=== PATIENT | male | born 1995 | race Caucasian/White ===

== ENCOUNTER 2016-08-20 01:06 | Observation (INO) | payer OTHER ==
[~2016-08-20] VITALS: Ht 188 cm; Wt 66.2 kg
[2016-08-20] MEDS ORDERED: SULF-222 (01:12)
[2016-08-20] MEDS ORDERED: MUPI22OI2 (01:12)
--- OUTSIDE RECORDS SUMMARY | 2016-08-20 01:13 | XMS REPORT | Continuity of Care Document ---
Author Author [facility] Organization [facility] Address Unknown Phone Unavailable Care Team Providers Care Consumer Insights Specialist Name Role Phone No Pcp, Na PCP Unavailable Source Comments Some departments are not documenting in the electronic medical record. If you do not see the information that you expected, contact Release of Information in the Health Information Management department at [phone] for further assistance in locating additional records.[facility] Active Allergies and Adverse Reactions Allergen Noted Date Severity Reactions Comments Peanut 03/03/2016 High ANAPHYLAXIS Current Medications Prescription Sig. Disp. Refills Start End Date Status Date ibuprofen (MOTRIN) 600 mg Take 1 Tab by mouth every 50 Tab 0 05/24/20 Active tablet 6 hours as needed. Take 16 with food. albuterol (VENTOLIN HFA, Inhale 2 Puffs by mouth 1 Inhaler 0 07/25/19 Active PROAIR HFA, PROVENTIL into the lungs every 6 17 HFA) 90 mcg/actuation hours as needed for inhaler Wheezing or Shortness of Breath. Shake well before use. Mometasone-Formoterol Inhale 2 Puffs by mouth 1 Inhaler 0 07/25/19 Active 100-5 mcg/actuation HFAA into the lungs twice 17 daily as needed. albuterol (VENTOLIN HFA, Inhale 2 Puffs by mouth 07/25/19 Discontin PROAIR HFA, PROVENTIL into the lungs every 6 17 ued HFA) 90 mcg/actuation hours as needed for inhaler Wheezing or Shortness of Breath. Shake well before use. Mometasone-Formoterol Inhale 2 Puffs by mouth 07/25/19 Discontin 100-5 mcg/actuation HFAA into the lungs twice 17 ued daily as needed. Active Problems Problem Noted Date Pectus excavatum 02/19/2016 Asthma Most Recent Encounters Date Type Specialty Providers Description 07/28/2016 Office Visit Cardiothoracic Surgery Shashank Feng MD Pectus excavatum (Primary Dx) 07/28/2016 Hospital Radiology Shashank Feng MD Encounter 07/25/2016 Telephone Cardiothoracic Surgery Martine Mars RN Medication Refill 06/16/2016 Office Visit Cardiothoracic Surgery Shashank Feng MD Pectus excavatum (Primary Dx) 06/16/2016 [facility] Radiology Lizeth Goldstein PA-C Encounter 05/21/2016 Anesthesia Cardiothoracic Surgery Aleena Rodriguez MD Event 05/21/2016 Surgery Shashank Feng MD Right Video Assisted Thoracoscopy, Pectus Repair - (Aaron) 05/20/2016 [facility] Radiology Shashank eFng MD Encounter 05/20/2016 PAC Office Anesthesiology Shashank Feng MD Pectus excavatum Visit 05/20/2016 Anesthesia Stefan Underwood MD Event Social History Tobacco Use Types Packs/Day Years Used Date Never Smoker Smokeless Tobacco: Never Used Alcohol Use Drinks/Week oz/Week Comments No 0 Standard 0.0 drinks or equivalent Last Filed Vital Signs Vital Sign Reading Time Taken Blood Pressure 112/72 07/28/2016 1:48 PM TIRE BAGGER Pulse 83 07/28/2016 1:48 PM TIRE BAGGER Temperature 36.6 C (97.9 F) 05/24/2016 7:51 AM CDT Respiratory Rate - - Height 1.854 m (6' 1") 07/28/2016 1:48 PM TIRE BAGGER Weight 66.316 kg (146 lb 3.2 oz) 07/28/2016 1:48 PM TIRE BAGGER Body Mass Index 19.29 07/28/2016 1:48 PM TIRE BAGGER Oxygen Saturation 97% 07/28/2016 1:48 PM TIRE BAGGER Plan of Care Date Type Specialty Providers Description 09/29/2016 Appointment Cardiothoracic Surgery Shashank Feng MD [address] [facility] [address] [place] [address] [phone] (Fax) Health Maintenance Due Date Last Done Comments Physical (Comprehensive) 02/10/2003 Exam Hpv Vaccines (#1) 02/10/2007 Pertussis Vaccine 02/10/2007 Tetanus Vaccine 02/10/2013 Influenza Vaccine 03/20/2016 Procedures from Last 3 Months Procedure Name Priority Date/Time Associated Diagnosis Comments PROCEDURES-SCAN 05/27/2016 Results for this 8:36 AM TIRE BAGGER procedure are in the results section. PROCEDURES-SCAN 05/27/2016 Results for this 8:36 AM TIRE BAGGER procedure are in the results section. PROCEDURES-SCAN 05/27/2016 Results for this 8:36 AM TIRE BAGGER procedure are in the results section. ANESTHESIA ARTERIAL LINE Routine 05/21/2016 Results for this INSERTION 9:16 AM CDT procedure are in the results section. Results from Last 3 Months CHEST 2 VIEWS (07/28/2016 1:36 PM)Only the most recent of 3 results within the time period is included. Impressions No acute disease in the chest. Approved by Gregory David M.D. on 07/28/2016 3:24 PM By my electronic signature, I attest that I have personally reviewed the images for this examination and formulated the interpretations and opinions expressed in this report Finalized by Britney Mcdonald M.D. on 07/28/2016 3:30 PM. Dictated by Gregory David M.D. on 07/28/2016 1:38 PM. Narrative CHEST 2 VIEWS Clinical Indication:Male, 21 years old. Pectus excavatum. Had surgery 2015 . Comparison: None Findings: The Aaron bar remains in place and is unchanged in position Heart size and pulmonary vasculature are within normal limits. No consolidation, pleural effusion, or pneumothorax. Stable hypoplastic changes of the left third rib. Procedure Note Interface, Radiant Results - ThuJul 28, 2016 3:33 PM TIRE BAGGER CHEST 2 VIEWS Clinical Indication: Male, 21 years old. Pectus excavatum. Had surgery 05/2016 . Comparison: None Findings: The Aaron bar remains in place and is unchanged in position Heart size and pulmonary vasculature are within normal limits. No consolidation, pleural effusion, or pneumothorax. Stable hypoplastic changes of the left third rib. IMPRESSION No acute disease in the chest. Approved by Gregory David M.D. on 07/28/2016 3:24 PM By my electronic signature, I attest that I have personally reviewed the images for this examination and formulated the interpretations and opinions expressed in this report Finalized by Britney Mcdonald M.D. on 07/28/2016 3:30 PM. Dictated by Gregory David M.D. on 07/28/2016 1:38 PM. PROCEDURES-SCAN (05/27/2016 8:36 AM) Narrative Ordered by an unspecified provider. PROCEDURES-SCAN (05/27/2016 8:36 AM) Narrative Ordered by an unspecified provider. PROCEDURES-SCAN (05/27/2016 8:36 AM) Narrative Ordered by an unspecified provider. CHEST SINGLE VIEW (05/24/2016 6:25 AM)Only the most recent of 5 results within the time period is included. Impressions Continued improvement in scattered atelectasis. Approved by Michael Nuno M.D. on 05/24/2016 8:52 AM By my electronic signature, I attest that I have personally reviewed the images for this examination and formulated the interpretations and opinions expressed in this report Finalized by Michael Chiu M.D. on 05/24/2016 10:28 AM. Dictated by Michael Nuno M.D. on 05/24/2016 8:00 AM. Narrative CHEST SINGLE VIEW Clinical Indication: Male, 21 years old. Right VATS, pectus repair, chest tube placement. Comparison: Chest prior day Findings: Michael Chiu M.D. has personally reviewed these images and formulated the interpretations and opinions expressed in this report. Cardiac silhouette is normal in size. Pulmonary vasculature is unremarkable. No focal consolidation, pleural effusion, or pneumothorax. Pectus repair bar remains in place. Interval improvement in scattered atelectasis. Procedure Note Interface, Radiant Results - Sat May 24, 2016 10:31 AM CDT CHEST SINGLE VIEW Clinical Indication: Male, 21 years old. Right VATS, pectus repair, chest tube placement. Comparison: Chest prior day Findings: Michael Chiu M.D. has personally reviewed these images and formulated the interpretations and opinions expressed in this report. Cardiac silhouette is normal in size. Pulmonary vasculature is unremarkable. No focal consolidation, pleural effusion, or pneumothorax. Pectus repair bar remains in place. Interval improvement in scattered atelectasis. IMPRESSION Continued improvement in scattered atelectasis. Approved by Michael Nuno M.D. on 05/24/2016 8:52 AM By my electronic signature, I attest that I have personally reviewed the images for this examination and formulated the interpretations and opinions expressed in this report Finalized by Michael Chiu M.D. on 05/24/2016 10:28 AM. Dictated by Michael Nuno M.D. on 05/24/2016 8:00 AM. BASIC METABOLIC PANEL (05/22/2016 3:30 AM) Component Value Range Sodium 135 (L) 137-147 MMOL/L Potassium 3.7 3.5-5.1 MMOL/L Chloride 101 98-110 MMOL/L CO2 26 21-30 MMOL/L Anion Gap 8 3-12 Glucose 114 (H) 70-100 MG/DL Blood Urea Nitrogen 8 7-25 MG/DL Creatinine 0.91 0.4-1.24 MG/DL Calcium 9.2 8.5-10.6 MG/DL eGFR Non >60Comment: >60 mL/min The eGFR is not validated for use in drug dosing adjustments. Continue to use estimated creatinine clearance per dosing reference text. Please contact the Clinical Pharmacist for questions. eGFR >60Comment: >60 mL/min The eGFR is not validated for use in drug dosing adjustments. Continue to use estimated creatinine clearance per dosing reference text. Please contact the Clinical Pharmacist for questions. Specimen Blood CBC (05/22/2016 3:30 AM)Only the most recent of 2 results within the time period is included. Component Value Range White Blood Cells 10.1 4.5-11.0 K/UL RBC 4.42 4.4-5.5 M/UL Hemoglobin 12.8 (L) 13.5-16.5 GM/DL Hematocrit 38.2 (L) 40-50 % MCV 86.4 80-100 FL MCH 29.0 26-34 PG MCHC 33.6 32.0-36.0 G/DL RDW 13.3 11-15 % Platelet Count 187 150-400 K/UL MPV 9.2 7-11 FL Specimen Blood POC GLUCOSE (05/22/2016 3:23 AM)Only the most recent of 4 results within the time period is included. Component Value Range Glucose, POC 105 (H) 70-100 MG/DL ANESTHESIA ARTERIAL LINE INSERTION (05/21/2016 9:16 AM) MORIAH Gordon 05/21/20169:16 AM Anesthesia Procedure: Arterial Line Placement A-LINE INSERTION Date/Time: 05/21/2016 8:45 AM Patient location: OR Indications: frequent labs and hemodynamic monitoring Staff Anesthesiologist: STEFAN UNDERWOOD Performed by: MANDEEP STARK Preprocedure checklist performed: 2 patient identifiers, risks & benefits discussed, patient evaluated, timeout performed, consent obtained and patient being monitored Sterile technique: - Proper hand washing - Cap, mask - Sterile gloves - Skin prep for antisepsis Arterial Line Procedure Patient sedated: yes (see MAR) Sedation type: general; Artery prepped with chlorhexidine; skin prep agent completely dried prior to procedure. Location: radial artery Technique: palpation and anatomical landmarks Needle gauge: 20 G Number of attempts: 2 Procedure Outcome Catheter secured with chlorhexidine patch applied, securement device and adhesive dressing applied Events: no complications noted during insertion and skin intact, warm, and dry Observation: pt tolerated well ANESTHESIA EPIDURAL BLOCK (05/21/2016 8:05 AM) Keesha Rodriguez MD 05/21/20168:05 AM Anesthesia Procedure: Epidural Block EPIDURAL BLOCK Date/Time: 05/21/2016 7:45 AM Patient location: pre-op Reason for block: post-op pain management Staff Anesthesiologist: STEFAN UNDERWOOD Performed by: ALEENA RODRIGUEZ Preprocedure checklist performed: 2 patient identifiers, risks & benefits discussed, patient evaluated, timeout performed, consent obtained, patient being monitored, existing labs reviewed, no anticoagulant within risk period and sterile drape Sterile technique: - Proper hand washing - Cap, mask - Sterile gloves - Skin prep for antisepsis Epidural Procedure Patient position: sitting Prep: ChloraPrep Monitoring: BP, EKG and continuous pulse ox Approach: midline Location: thoracic Level/Interspace: T7-8 Injection technique: CARLOS EDUARDO saline Procedures: landmark technique Local infiltration: 1% lidocaine injected locally Number of attempts: 2 Needle/epidural catheter: Needle type: Tuohy Needle gauge: 18 G Needle length: 3.5 in Needle insertion depth: 5 cm Catheter type: multi orifice Catheter size: 20 G Catheter at skin depth: 10 cm Procedure Outcome Events: negative test dose and negative aspiration test Patient tolerance of procedure: patient tolerated the procedure well with no immediate complications BLOOD TYPE CONFIRMATION - ORDER ONLY IF REQUESTED BY LAB (05/21/2016 4:34 AM) Component Value Range ABO/RH(D) A POS Specimen Blood URINALYSIS, MICROSCOPIC (05/20/2016 1:45 PM) Component Value Range WBCs,UA NONE 0-2 /HPF RBCs,UA NONE 0-3 /HPF MucousUA TRACE Specimen Urine URINALYSIS DIPSTICK (05/20/2016 1:45 PM) Component Value Range Color,UA STRAW Turbidity,UA CLEAR CLEAR-CLEAR Specific [place]-Urine 1.004 1.003-1.035 pH,UA 7.0 5.0-8.0 Protein,UA NEG NEG-NEG Glucose,UA NEG NEG-NEG Ketones,UA NEG NEG-NEG Bilirubin,UA NEG NEG-NEG Blood,UA NEG NEG-NEG Urobilinogen,UA NORMAL NORM-NORMAL Nitrite,UA NEG NEG-NEG Leukocytes,UA NEG NEG-NEG Urine Ascorbic Acid, UA NEG NEG-NEG Specimen Urine TYPE & CROSSMATCH (05/20/2016 1:44 PM) Component Value Range Units Ordered 0 Crossmatch Expires 05/23/2016 Record Check 2ND TYPE REQUIRED ABO/RH(D) A POS Antibody Screen NEG Specimen Blood PTT (APTT) (05/20/2016 1:44 PM) Component Value Range APTT 35.1 24.0-40.0 SEC Specimen Blood PROTIME INR (PT) (05/20/2016 1:44 PM) Component Value Range INR 1.1 0.8-1.2 Specimen Blood COMPREHENSIVE METABOLIC PANEL (05/20/2016 1:44 PM) Component Value Range Sodium 138 137-147 MMOL/L Potassium 4.1 3.5-5.1 MMOL/L Chloride 101 98-110 MMOL/L Glucose 72 70-100 MG/DL Blood Urea Nitrogen 10 7-25 MG/DL Creatinine 1.04 0.4-1.24 MG/DL Calcium 9.9 8.5-10.6 MG/DL Total Protein 7.6 6.0-8.0 G/DL Total Bilirubin 0.6 0.3-1.2 MG/DL Albumin 4.5 3.5-5.0 G/DL Alk Phosphatase 66 25-110 U/L AST (SGOT) 14 7-40 U/L CO2 30 21-30 MMOL/L ALT (SGPT) 12 7-56 U/L Anion Gap 7 3-12 eGFR Non >60Comment: >60 mL/min The eGFR is not validated for use in drug dosing adjustments. Continue to use estimated creatinine clearance per dosing reference text. Please contact the Clinical Pharmacist for questions. eGFR >60Comment: >60 mL/min The eGFR is not validated for use in drug dosing adjustments. Continue to use estimated creatinine clearance per dosing reference text. Please contact the Clinical Pharmacist for questions. Specimen Blood
[2016-08-20 01:30] LABS: BASOPHILS % (AUTO) 0 % (0-10); EOSINOPHILS # (AUTO) 0.7 10^3/uL (0.0-0.3); EOSINOPHILS % (AUTO) 8 % (0-10); LYMPHOCYTES # (AUTO) 2.5 X 10^3 (1.0-4.0); LYMPHOCYTES % (AUTO) 29 % (12-44); MEAN CORPUSCULAR HEMOGLOBIN 30 PG (25-34); MEAN CORPUSCULAR HGB CONC 34 G/DL (32-36); MEAN CORPUSCULAR VOLUME 86 FL (80-99); MEAN PLATELET VOLUME 10.5 FL (7.4-10.4); MONOCYTES # (AUTO) 0.6 X 10^3 (0.0-1.0); MONOCYTES % (AUTO) 7 % (0-12); NEUTROPHILS # (AUTO) 4.7 X 10^3 (1.8-7.8); NEUTROPHILS % (AUTO) 56 % (42-75); PLATELET COUNT 254 10^3/uL (130-400); RED BLOOD COUNT 5.29 10^6/uL (4.35-5.85); RED CELL DISTRIBUTION WIDTH 12.8 % (10.0-14.5); WHITE BLOOD COUNT 8.5 10^3/uL (4.3-11.0)
[2016-08-20 01:47] LABS: ALANINE AMINOTRANSFERASE 15 U/L (0-55); ALBUMIN 4.6 G/DL (3.2-4.5); ANION GAP 11 MMOL/L (5-14); ASPARTATE AMINO TRANSFERASE 17 U/L (5-34); BILIRUBIN,TOTAL 0.6 MG/DL (0.1-1.0); BLOOD UREA NITROGEN 15 MG/DL (7-18); BUN/CREATININE RATIO 12; CALCIUM 9.3 MG/DL (8.5-10.1); CARBON DIOXIDE 22 MMOL/L (21-32); CHLORIDE 106 MMOL/L (98-107); CREATININE SERUM 1.26 MG/DL (0.60-1.30); GFR ESTIMATED > 60; GLUCOSE 89 MG/DL (70-105); POTASSIUM 3.8 MMOL/L (3.6-5.0); SODIUM 139 MMOL/L (135-145); TOTAL PROTEIN 7.5 G/DL (6.4-8.2)
[2016-08-20 01:59] LABS: hs C REACTIVE PROTEIN 0.64 MG/DL (0.00-0.50)
[2016-08-20] MEDS ORDERED: CLINDAMYCIN 900 MG/50 ML IVPB 50 ML IV ONE (02:15)
[2016-08-20] MEDS ORDERED: methylPREDNISolone 125 MG (Solu-MEDROL) VIAL IVP ONE (02:15)
[2016-08-20 02:34] LABS: ERYTHROCYTE SEDIMENTATION RATE 2 MM/HR (0-15)
[2016-08-20 04:00] VITALS: BP 123/91
--- NOTE | 2016-08-20 05:42 | ED Integumentary General ---
General Chief Complaint: Skin/Wound Problems Stated Complaint: CELLULITIS R HAND & FOREARM Nursing Triage Note: Hand swollen since Thursday a.m. and saw [facility] today at 10 a.m. with extension into lower FA. Pt is on Bactrim now but has been picking at the scabs and squeezing. The markings from [facility] had extension of erythema since morning. Source: patient History of Present Illness Time seen by provider: 01:20 Initial Comments PT STATES HE WOKE UP Thursday08/18/16 WITH RIGHT HAND REDNESS AND SWELLING SEEN AT [facility] TODAY AT 1030 AM AND WAS GIVEN RX FOR BACTRIM AND TOOK FIRST DOSE AT 1400 STATES HE HAD SOME REDNESS AND SWELLING TO MID FOREARM AT THAT TIME' REDNESS AND SWELLING AND PAIN HAVE INCREASED AND REDNESS AND SWELLING NOW EXTEND TO ELBOW NO FEVER NO INJURY HAS A FEW SCABBED AREAS TO DORSUM OF RIGHT HAND, WHICH HE HAS PICKED AT. HE IS NOT SURE HOW THE SCABS GOT THERE NO HISTORY OF SIMILAR PROBLEMS NO PCP PT HAS BEEN A [employer] STUDENT, BUT TOOK THIS SEMESTER OFF, HE HAD CHEST SURGERY RECENTLY TO REPAIR PES EXCAVATUM. Allergies and Home Medications Allergies Coded Allergies: No Known Drug Allergies (Unverified , 08/20/16) Home Medications Mupirocin 22 Gm Oint...g. #22 (Reported) Sulfamethoxazole/Trimethoprim 1 Each Tablet #20 (Reported) Constitutional: no symptoms reported EENTM: no symptoms reported Respiratory: no symptoms reported Cardiovascular: no symptoms reported Gastrointestinal: no symptoms reported Genitourinary: no symptoms reported Musculoskeletal: see HPI Skin: see HPI Psychiatric/Neurological: No Symptoms Reported Endocrine: No Symptoms Reported Hematologic/Lymphatic: No Symptoms Reported Past Vlhnpkm-Zwjlxh-[id number] Hx Patient Social History Alcohol Use: Occasionally Uses Recreational Drug Use: Yes (THC, MUSHROOMS) Smoking Status: Current Someday Smoker Type Used: Electronic/Vapor Recent Foreign Travel: No Contact w/Someone Who Travel: No Recent Infectious Disease Expo: No Recent Hopitalizations: No Physical Abuse Screen: No Sexual Abuse: No Immunizations Up To Date Tetanus Booster (TDap): Less than 5yrs PED Vaccines UTD: Yes Seasonal Allergies Seasonal Allergies: Yes Surgeries HX Surgeries: Yes (REPAIR OF PES EXCAVATUM; NASAL/SINUS SURGERY; WISDOM TEETH REMOVED; ? TONSILLECTOMY ? ) Respiratory Hx Respiratory Disorders: Yes Respiratory Disorders: Asthma Cardiovascular Hx Cardiac Disorders: No Neurological Hx Neurological Disorders: No Reproductive System Hx Reproductive Disorders: No Sexually Transmitted Disease: No HIV/AIDS: No Genitourinary Hx Genitourinary Disorders: No Gastrointestinal Hx Gastrointestinal Disorders: No Musculoskeletal Hx Musculoskeletal Disorders: Yes (PES EXCAVATUM) Endocrine Hx Endocrine Disorders: No HEENT HX ENT Disorders: No Cancer Hx Cancer: No Psychosocial Hx Psychiatric Problems: No Integumentary HX Skin/Integumentary Disorder: Yes (ACNE) Blood Transfusions Hx Blood Disorders: No Family Medical History Family Medial History: Patient reports no known family medical history. Physical Exam Vital Signs Capillary Refill : Less Than 3 Seconds General Appearance: WD/WN no apparent distress HEENT: normal ENT inspection Neck: non-tender full range of motion supple normal inspection Cardiovascular: regular rate, rhythm no murmur Respiratory: normal breath sounds no respiratory distress no accessory muscle use Gastrointestinal: non tender soft Back: normal inspection Extremities: other (MASSIVE SWELLING TO RIGHT HAND AND FOREARM, WITH ERYTHEMA AND WARMTH, EXTENDING UP TO ELBOW. HAS A FEW SCABBED SORES TO DORSUM OF RIGHT HAND, NO AREAS OF FLUCTUANCE, NO DRAINAGE. FULL ROM. MOTOR/SENSORY/VASCULAR INTACT. 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 ACNE TO FACE/NECK/SHOULDERS WITHOUT EVIDENCE OF SECONDARY INFECTION) Progress/Results/Core Measures Results/Orders Lab Results Laboratory Tests Test 08/20/16 01:23 Range/Units Alanine Aminotransferase (ALT/SGPT) 15 0-55 U/L Albumin 4.6 H 3.2-4.5 G/DL Alkaline Phosphatase 84 40-136 U/L Anion Gap 11 5-14 MMOL/L Aspartate Amino Transf (AST/SGOT) 17 5-34 U/L BUN/Creatinine Ratio 12 Basophils # (Auto) 0.0 0.0-0.1 10^3/uL Basophils (%) (Auto) 0 0-10 % Blood Urea Nitrogen 15 7-18 MG/DL C-Reactive Protein High Sensitivity 0.64 H 0.00-0.50 MG/DL Calcium Level 9.3 8.5-10.1 MG/DL Carbon Dioxide Level 22 21-32 MMOL/L Chloride Level 106 98-107 MMOL/L Creatinine 1.26 0.60-1.30 MG/DL Eosinophils # (Auto) 0.7 H 0.0-0.3 10^3/uL Eosinophils (%) (Auto) 8 0-10 % Erythrocyte Sedimentation Rate 2 0-15 MM/HR Estimat Glomerular Filtration Rate > 60 Glucose Level 89 70-105 MG/DL Hematocrit 46 40-54 % Hemoglobin 15.7 13.3-17.7 G/DL Lymphocytes # (Auto) 2.5 1.0-4.0 X 10^3 Lymphocytes (%) (Auto) 29 12-44 % Mean Corpuscular Hemoglobin 30 25-34 PG Mean Corpuscular Hemoglobin Concent 34 32-36 G/DL Mean Corpuscular Volume 86 80-99 FL Mean Platelet Volume 10.5 H 7.4-10.4 FL Monocytes # (Auto) 0.6 0.0-1.0 X 10^3 Monocytes (%) (Auto) 7 0-12 % Neutrophils # (Auto) 4.7 1.8-7.8 X 10^3 Neutrophils (%) (Auto) 56 42-75 % Platelet Count 254 130-400 10^3/uL Potassium Level 3.8 3.6-5.0 MMOL/L Red Blood Count 5.29 4.35-5.85 10^6/uL Red Cell Distribution Width 12.8 10.0-14.5 % Sodium Level 139 135-145 MMOL/L Total Bilirubin 0.6 0.1-1.0 MG/DL Total Protein 7.5 6.4-8.2 G/DL White Blood Count 8.5 4.3-11.0 10^3/uL My Orders Orders-STEPHANIA ESPINOZA DO Saline Lock/Iv-Start (08/20/16 01:25) Cbc With Automated Diff (08/20/16 01:25) Comprehensive Metabolic Panel (08/20/16 01:25) Hs C Reactive Protein (08/20/16 01:25) Erythrocyte Sedimentation Rate (08/20/16 01:25) Blood Culture (08/20/16 01:25) Clindamycin 900 Mg/50 Ml Ivpb (Cleocin P (08/20/16 02:15) Methylprednisolone Sod Succ (Solu-Medrol (08/20/16 02:15) Medications Given in ED Current Medications Medications Dose Ordered Sig/Jake Route Start Time Stop Time Status Last Admin Dose Admin Clindamycin Phosphate/Dextrose 50 ml @ 100 mls/hr ONCE ONCE IV 08/20/16 02:15 08/20/16 02:44 DC 08/20/16 02:52 100 MLS/HR Methylprednisolone Sodium Succinate 125 mg ONCE ONCE IVP 08/20/16 02:15 08/20/16 02:16 DC 08/20/16 02:52 125 MG Blood Pressure Mean: 102 Departure Communication Progress Notes [id number]--SPOKE WITH DR. CHONG, ACCEPTS PT FOR ADMIT. Impression Impression: Primary Impression: CELLULITIS TO RIGHT HAND AND FOREARM Disposition: ADMITTED INPATIENT Condition: Stable Decision to Admit Reason: Admit from ER (General) Decision to Admit/Date: Aug 20, 2016 Time/Decision to Admit Time: 02:35 Departure-Patient Inst. Referrals: NO,LOCAL PHYSICIAN (PCP) Primary Care Physician STEPHANIA ESPINOZA DO Aug 20, 2016 05:42
[2016-08-20] MEDS ORDERED: ACETAMINOPHEN 500 MG TAB (TYLENOL) PO PRN (05:45)
[2016-08-20] MEDS ORDERED: KETOROLAC 30 MG/ML VIAL IV PRN (05:45)
[2016-08-20] MEDS ORDERED: RT-ALBUINH INH (07:05)
[2016-08-20] MEDS ORDERED: Dulera (07:05)
[2016-08-20] MEDS ORDERED: CATHETER FLUSH 10 ML SYR IV PRN (07:30)
[2016-08-20] MEDS ORDERED: FLU TRIvalent (5 YOA+) 2016-17 (AFLURIA) 0.5 ML IM ONE (07:30)
[2016-08-20 08:00] VITALS: BP 118/58
[2016-08-20] MEDS ORDERED: CLINDAMYCIN 900 MG IVPB 50 ML IV SCH (08:00)
[2016-08-20] MEDS ORDERED: MOME13HF2 IH (09:25)
[2016-08-20] MEDS ORDERED: VANCOMYCIN INJECTION 1,250 MG in NS (IVPB) 250 ML IV SCH (10:00)
[2016-08-20] MEDS ORDERED: HYDROcodone/APAP 5 MG/325 MG (LORTAB) TAB PO PRN (10:15)
[2016-08-20] MEDS ORDERED: RT-ALBUTEROL SULF 2.5 MG/3 ML PRE-MIX VIAL IH PRN (10:15)
--- NOTE | 2016-08-20 10:38 | History & Physical-Hospitalist ---
HPI History of Present Illness: HPI/Chief Complaint CC: Right hand cellulitis HPI: This is a 21yoWM [employer] student who is taking a break this semester due to s/ p pectus excavatum repair recently at [facility] who was given Bactrim from urgent care due to right hand redness but then he was picking the scabs and became worsened. Pt came to ER revealing failed oral antibiotic cellulitis, so pt was placed on Vanc for presumed MRSA. Patient Interview: Pt states that his arm feels much improved. Pt states that he has not required pain meds after admission. Pt states that his chest surgery was performed in [place]. 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 Physical exam stable. Pt uses either [facility] pharmacy, and has insurance to assist with medication. Pt agrees to stay at [facility] for one night. Pt requests a return to regular diet. Pt uses Albuterol inhaler at home prn, but did not bring them with him. Scribed by Santhosh Portillo under the direct supervision of Dr. Campa. Source: patient Exam Limitations: no limitations Date Seen 08/20/16 Attending Physician Jered Kamara MD PCP No,Local Physician Referring Physician Date of Admission Aug 20, 2016 at 02:35 Home Medications & Allergies Home Medications Reviewed patient Home Medication Reconciliation Form Allergies Coded Allergies: No Known Drug Allergies (Unverified , 08/20/16) Past Vkbhnrc-Odnyxr-Ftfaek Hx Patient Social History Marrital Status: single Employed/Student: unemployed Alcohol Use: Occasionally Uses Recreational Drug Use: Yes (THC, MUSHROOMS) Smoking Status: Current Someday Smoker Type Used: Electronic/Vapor Physical Abuse Screen: No Sexual Abuse: No Recent Foreign Travel: No Contact w/other who traveled: No Recent Hopitalizations: No Recent Infectious Disease Expo: No Immunizations Up To Date Tetanus Booster (TDap): Less than 5yrs Seasonal Allergies Seasonal Allergies: Yes Surgeries HX Surgeries: Yes (REPAIR OF PES EXCAVATUM; NASAL/SINUS SURGERY; WISDOM TEETH REMOVED; ? TONSILLECTOMY ? ) Respiratory Hx Respiratory Disorders: Yes Respiratory Disorders: Asthma Cardiovascular Hx Cardiovascular Disorders: No Neurological Hx Neurological Disorders: No Reproductive System Hx Reproductive Disorders: No Sexually Transmitted Disease: No HIV/AIDS: No Genitourinary Hx Genitourinary Disorders: No Gastrointestinal Hx Gastrointestinal Disorders: No Musculoskeletal Hx Musculoskeletal Disorders: Yes (PES EXCAVATUM) Endocrine Hx Endocrine Disorders: No HEENT HX ENT Disorders: No Cancer Hx Cancer: No Psychosocial Hx Psychiatric Problems: No Integumentary HX Skin/Integumentary Disorder: Yes (ACNE) Blood Transfusions Hx Blood Disorders: No Family Medical History Family Hx: Patient reports no known family medical history. Review of Systems Constitutional: see HPI fever weakness EENTM: no symptoms reported Respiratory: no symptoms reported Cardiovascular: no symptoms reported Gastrointestinal: no symptoms reported Genitourinary: no symptoms reported Musculoskeletal: joint pain Skin: no symptoms reported Psychiatric/Neurological: No Symptoms Reported All Other Systems Reviewed Negative Unless Noted: Yes Physical Exam Physical Exam Vital Signs Vital Sign - Last 12Hours 08/20/16 08/20/16 03:25 04:00 Temp 98.5 Pulse 86 Resp 20 B/P 123/91 Pulse Ox 97 O2 Delivery Room Air Capillary Refill : Less Than 3 Seconds General Appearance: No Apparent Distress WD/WN Eyes: Bilateral Eye Normal Inspection, Bilateral Eye PERRL HEENT: PERRL/EOMI Normal ENT Inspection Pharynx Normal Neck: Full Range of Motion Normal Inspection Non Tender Supple Carotid Bruit Respiratory: Chest Non Tender Lungs Clear Normal Breath Sounds No Accessory Muscle Use No Respiratory Distress Cardiovascular: Regular Rate, Rhythm No Edema No Gallop No JVD No Murmur Normal Peripheral Pulses Gastrointestinal: Normal Bowel Sounds No Organomegaly No Pulsatile Mass Non Tender Soft Back: Normal Inspection No CVA Tenderness No Vertebral Tenderness Extremity: Normal Capillary Refill Normal Inspection Normal Range of Motion Non Tender No Calf Tenderness No Pedal Edema Swelling (right hand w/edema and improved erythema compared to outline of presentation w/limited ROM hand) Neurologic/Psychiatric: Alert Oriented x3 No Motor/Sensory Deficits Normal Mood/Affect Skin: Normal Color Warm/Dry Lymphatic: No Adenopathy Results Results/Procedures Lab Laboratory Tests 08/20/16 01:23 Assessment/Plan Admission Diagnosis Assessment: Right hand and forearm cellulitis with high risk for dominant hand compromise Asthma Recent pectus excavatum repair Assessment and Plan Plan: OT eval for hand strengthening Regular diet Pain meds prn DC planned for tomorrow Clinical Quality Measures DVT/VTE Risk/Contraindication: Risk Factor Score Per Nursin RFS Level Per Nursing on Admit: 1=Low/No VTE PPX JORGE CAMPA DO Aug 20, 2016 10:38
[2016-08-20 12:00] VITALS: BP 121/69
--- NOTE | 2016-08-20 14:52 | Occupational Therapy Eval ---
OT Evaluation-General/PLF Medical Diagnosis Admission Date Aug 20, 2016 at 02:35 Medical Diagnosis: Cellulitis right hand and forearm Onset Date: Aug 18, 2016 Therapy Diagnosis Therapy Diagnosis: right hand weakness Height/Weight Height (Feet): 6 Height (Inches): 2.00 Weight (Pounds): 146 Weight (Ounces): 0.0 Precautions Precautions/Isolations: Standard Precautions Weight Bear Status Weight Bearing Restriction: Weight Bearing/Tolerated Referral Physician: Dr. Campa Referral Reason: Evaluation/Treatment Medical History Additional Medical History Pectus excavatum repair in May, sinus sx, failed antibiotic cellulitis Current History Pt. states that he is unsure how he became swollen. States that maybe he was bit by a bug? States that his hand looks much better, and had been swollen and red before. Reviewed History: Yes ADL-Prior Level of Function ADL PLOF Comments Pt. full independent with daily tasks. Showered today independently. States, "I have had no trouble playing video games or texting friends. Works at [employer]. Occupation: Works at [employer] Self: Yes OT Current Status Subjective Pt. reports no pain but states that the back of his hand "feels tight." Appearance Pt. in bed. Laughing with friend. Mental Status/Objective Patient Orientation: Person, Place, Time, Situation Current Glasses/Contacts: Yes Hand Dominance: Right Upper Extremity ROM Pt. demonstrates full ROM in bilateral shoulders, bilateral elbows, and left wrist/hand. Slightly impaired in right hand due to swelling. Upper Extremity Coordination Left- WFL right- slightly impaired. Upper Extremity Sensation Pt. states that his right hand is "a little numb." Upper Extremity Strength left hand- WFL right hand- 4/5 Pt. does have edema in right hand. However, little redness noted. Pt. also states that edema was "much worse." States that he feels that it has went down "quite a bit." ADL-Treatment Functional Greer Measure 0=Not Assessed/NA 4=Minimal Assistance 1=Total Assistance 5=Supervision or Setup 2=Maximal Assistance 6=Modified Greer 3=Moderate Assistance 7=Complete IndependenceIRFPAI Quality Coding Scale 6 Independent with activity with or without an assistive device 5 Patient requires set up or clean up by helper. Patient completes activity by themselves 4 Supervision or touching assist (CGA). [place] provide cues , steadying assist 3 The helper provides less than half the effort to complete the activity 2 The helper provides more than half the effort to complete the activity 1 Dependent. The helper does all the effort to complete an activity 7 Patient refused to complete or attempt activity 9 The patient did not perform the activity before the current illness or injury 88 Not attempted due to Medical conditions or safety concerns Other Treatments Pt. independent with everything at this time. Has already showered, dressed self. States he has no problem with donning shoes. States he has been playing video games and texting/using his phone. Pt. shown 4 AROM exercises for right hand. Exercises are to maintain joint integrity while pt. recovering. Strengthening as well as massage would be contraindicated at this time due to having an active infection in that space. Pt. able to practice each exercise. Completed PIP/DIP and MP flexion exercises x 10 reps. Pt. also able to touch thumb to each finger with little difficulty. Educated to do that 5 times, 3 times per day. Pt. verbalizes understanding of exercises after demonstrating ability to complete them. Pt. encouraged that if he is having any difficulty after he heals from infection, that he can begin active strengthening exercises with hand note specialist. Also educated him regarding outpt OT. Pt. eager to leave today. Let nursing know. Pt. has all needs met in room. No further OT educated warranted at this time, as pt. has no functional deficits and has been educated in hand ROM for joint integrity. Education OT Patient Education: Correct positioning, Home exercise program Teaching Recipient: Patient Teaching Methods: Demonstration, Discussion Response to Teaching: Verbalize Understanding, Return Demonstration OT Short Term Goals Short Term Goals 1=Demonstrate adherence to instructed precautions during ADL tasks. 2=Patient will verbalize/demonstrate understanding of assistive devices/ modifications for ADL. 3=Patient will improve strength/tolerance for activity to enable patient to perform ADL's. OT Nursing Home Goals [place] Operator Goals Time Frame: 1 day Pt. will verbalize and return demonstrate AROM exercises for right hand to perform for continued joint integrity.- Met 1=Demonstrate adherence to instructed precautions during ADL tasks. 2=Patient will verbalize/demonstrate understanding of assistive devices/ modifications for ADL. 3=Patient will improve strength/tolerance for activity to enable patient to perform ADL's. OT Education/Plan Problem List/Assessment Assessment: Edema Discharge Recommendations Plan/Recommendations: Discharge/Goals Met Therapy D/C Recommendations: Home Independently Treatment Plan/Plan of Care Treatment Duration: Aug 20, 2016 Rehab Potential: Good Time/GCodes Start Time: 14:15 Stop Time: 14:40 Total Time Billed (hr/min): 25 Billed Treatment Time 1, EVlow complexity Discharge as goals are met. ALISON LARSON OT Aug 20, 2016 14:52
[2016-08-20 16:00] VITALS: BP 128/65
[2016-08-20] MEDS: VANCOMYCIN 1 GM/NS 250 ML IVPB IV SCH ×2 (18:05)
[2016-08-20 20:00] VITALS: BP 130/70
[2016-08-20] MEDS: RT-ADVAIR HFA 45/21 MCG PER PUFF IH SCH (21:46)
[2016-08-20] MEDS: CATHETER FLUSH 10 ML SYR IV SCH (22:00)
[2016-08-21] VITALS: BP 112/58
[2016-08-21] MEDS: VANCOMYCIN 1 GM/NS 250 ML IVPB IV SCH ×4 (01:34→11:00)
[2016-08-21 04:00] VITALS: BP 126/57
[2016-08-21 05:46] LABS: BASOPHILS % (AUTO) 0 % (0-10); EOSINOPHILS # (AUTO) 0.5 10^3/uL (0.0-0.3); EOSINOPHILS % (AUTO) 5 % (0-10); LYMPHOCYTES # (AUTO) 2.4 X 10^3 (1.0-4.0); LYMPHOCYTES % (AUTO) 26 % (12-44); MEAN CORPUSCULAR HEMOGLOBIN 30 PG (25-34); MEAN CORPUSCULAR HGB CONC 35 G/DL (32-36); MEAN CORPUSCULAR VOLUME 87 FL (80-99); MEAN PLATELET VOLUME 10.9 FL (7.4-10.4); MONOCYTES # (AUTO) 0.6 X 10^3 (0.0-1.0); MONOCYTES % (AUTO) 7 % (0-12); NEUTROPHILS # (AUTO) 5.8 X 10^3 (1.8-7.8); NEUTROPHILS % (AUTO) 62 % (42-75); PLATELET COUNT 224 10^3/uL (130-400); RED BLOOD COUNT 4.45 10^6/uL (4.35-5.85); RED CELL DISTRIBUTION WIDTH 12.6 % (10.0-14.5); WHITE BLOOD COUNT 9.3 10^3/uL (4.3-11.0)
[2016-08-21] MEDS: CATHETER FLUSH 10 ML SYR IV SCH (06:00)
[2016-08-21 06:01] LABS: ALANINE AMINOTRANSFERASE 11 U/L (0-55); ALBUMIN 3.8 G/DL (3.2-4.5); ANION GAP 9 MMOL/L (5-14); ASPARTATE AMINO TRANSFERASE 14 U/L (5-34); BILIRUBIN,TOTAL 0.3 MG/DL (0.1-1.0); BLOOD UREA NITROGEN 13 MG/DL (7-18); BUN/CREATININE RATIO 16; CALCIUM 8.6 MG/DL (8.5-10.1); CARBON DIOXIDE 23 MMOL/L (21-32); CHLORIDE 107 MMOL/L (98-107); CREATININE SERUM 0.81 MG/DL (0.60-1.30); GFR ESTIMATED > 60; GLUCOSE 111 MG/DL (70-105); POTASSIUM 3.5 MMOL/L (3.6-5.0); SODIUM 139 MMOL/L (135-145); TOTAL PROTEIN 6.3 G/DL (6.4-8.2)
[2016-08-21] MEDS: RT-ADVAIR HFA 45/21 MCG PER PUFF IH SCH (06:57)
[2016-08-21 09:00] VITALS: BP 126/60
[2016-08-21] MEDS ORDERED: TROUGH ORDER-PHARMACY XX NR (09:00)
--- NOTE | 2016-08-21 10:47 | Discharge Summary-Hospitalist ---
Diagnosis/Chief Complaint Date of Admission Aug 20, 2016 at 02:35 Date of Discharge Admission Diagnosis Assessment: Right hand and forearm cellulitis with high risk for dominant hand compromise Asthma Discharge Diagnosis Assessment: Right hand and forearm cellulitis with high risk for dominant hand compromise Asthma Plan: OT eval for hand strengthening Regular diet Pain meds prn DC planned for tomorrow Reason Hospital Visit/Course CC: Right hand cellulitis HPI: This is a 21yoWM [employer] student who is taking a break this semester due to s/ p pectus excavatum repair recently at [facility] who was given Bactrim from urgent care due to right hand redness but then he was picking the scabs and became worsened. Pt came to ER revealing failed oral antibiotic cellulitis, so pt was placed on Vanc for presumed MRSA. Patient Interview: Pt states that his arm feels much improved. Pt states that he has not required pain meds after admission. Pt states that his chest surgery was performed in [place]. Pt was previously studying biology and recently switched to [employer]. Physical exam stable. Pt uses either [facility] pharmacy, and has insurance to assist with medication. Pt agrees to stay at [facility] for one night. Pt requests a return to regular diet. Pt uses Albuterol inhaler at home prn, but did not bring them with him. Scribed by Santhosh Portillo under the direct supervision of Dr. Campa. Notes from 08/21/2016: Chart Review: Labs normal Blood Cx no growth Patient Interview: Pt states that he has been working with OT. Pt uses [facility]. Pt denies need for pain meds. Pt has sufficient supply of Bactrim remaining. No fever, pleasant, oriented 3 Right hand with only slight residual edema but no erythema and no pain Plan: Review antibiotics for DC Scribed by Santhosh Portillo under the direct supervision of Dr. Campa. Discharge Summary Discharge Physical Examination Allergies: Coded Allergies: No Known Drug Allergies (Unverified , 08/20/16) Vitals & I&Os Vital Signs Date Time Temp Pulse Resp B/P Pulse Ox O2 Delivery O2 Flow Rate FiO2 08/21/16 09:00 97.2 75 18 126/60 99 Room Air Hospital Course Labs (last 24 hrs) Laboratory Tests 08/21/16 05:01: Alanine Aminotransferase (ALT/SGPT) 11, Albumin 3.8, Alkaline Phosphatase 60, Anion Gap 9, Aspartate Amino Transf (AST/SGOT) 14, BUN/Creatinine Ratio 16, Basophils # (Auto) 0.0, Basophils (%) (Auto) 0, Blood Urea Nitrogen 13, Calcium Level 8.6, Carbon Dioxide Level 23, Chloride Level 107, Creatinine 0.81, Eosinophils # (Auto) 0.5H, Eosinophils (%) (Auto) 5, Estimat Glomerular Filtration Rate > 60, Glucose Level 111H, Hematocrit 39L, Hemoglobin 13.3, Lymphocytes # (Auto) 2.4, Lymphocytes (%) (Auto) 26, Mean Corpuscular Hemoglobin 30, Mean Corpuscular Hemoglobin Concent 35, Mean Corpuscular Volume 87, Mean Platelet Volume 10.9H, Monocytes # (Auto) 0.6, Monocytes (%) (Auto) 7, Neutrophils # (Auto) 5.8, Neutrophils (%) (Auto) 62, Platelet Count 224, Potassium Level 3.5L, Red Blood Count 4.45, Red Cell Distribution Width 12.6, Sodium Level 139, Total Bilirubin 0.3, Total Protein 6.3L, White Blood Count 9.3 08/21/16 08:58: Vancomycin Level Trough 12.7 Microbiology 08/20/16 Blood Culture - Preliminary, Resulted No growth Pending Labs Laboratory Tests 08/21/16 05:01: Alanine Aminotransferase (ALT/SGPT) 11, Albumin 3.8, Alkaline Phosphatase 60, Anion Gap 9, Aspartate Amino Transf (AST/SGOT) 14, BUN/Creatinine Ratio 16, Basophils # (Auto) 0.0, Basophils (%) (Auto) 0, Blood Urea Nitrogen 13, Calcium Level 8.6, Carbon Dioxide Level 23, Chloride Level 107, Creatinine 0.81, Eosinophils # (Auto) 0.5, Eosinophils (%) (Auto) 5, Estimat Glomerular Filtration Rate > 60, Glucose Level 111, Hematocrit 39, Hemoglobin 13.3, Lymphocytes # (Auto) 2.4, Lymphocytes (%) (Auto) 26, Mean Corpuscular Hemoglobin 30, Mean Corpuscular Hemoglobin Concent 35, Mean Corpuscular Volume 87, Mean Platelet Volume 10.9, Monocytes # (Auto) 0.6, Monocytes (%) (Auto) 7, Neutrophils # (Auto) 5.8, Neutrophils (%) (Auto) 62, Platelet Count 224, Potassium Level 3.5, Red Blood Count 4.45, Red Cell Distribution Width 12.6, Sodium Level 139, Total Bilirubin 0.3, Total Protein 6.3, White Blood Count 9.3 08/21/16 08:58: Vancomycin Level Trough 12.7 Discharge Home Medications: Active Scripts Active Bactrim Ds Tablet (Sulfamethoxazole/Trimethoprim) 1 Each Tablet 1 Each PO BID 7 Days Reported Dulera 100 Mcg/5 Mcg Inhaler (Mometasone/Formoterol) 13 Gm Hfa.aer.ad 2 Puff IH BID PRN Proventil Hfa (Albuterol Sulfate) 6.7 Gm Hfa.aer.ad 2 Puff INH Q4H PRN Instructions to patient/family Please see electonic discharge instructions given to patient. Clinical Quality Measures DVT/VTE Risk/Contraindication: Risk Factor Score Per Nursin RFS Level Per Nursing on Admit: 1=Low/No VTE PPX JORGE CAMPA DO Aug 21, 2016 10:47
[2016-08-21] MEDS ORDERED: SULF1TAB35 PO (10:50)
--- NOTE | 2016-08-21 10:51 | Discharge Instructions ---
Discharge Instructions Discharge Medications New, Converted or Re-Newed RX: Other (take the Rx as previously Rxed on 08/19/16 ) Patient Instructions Goal/Follow Up Appt: PCP in 1 week Activity & Diet Discharge Diet: No Restrictions Activity as Tolerated: Yes JORGE CASTELLANOS DO Aug 21, 2016 10:51
== END 2016-08-21 10:50 | disposition home or self-care (01) ==
LOC: EDUNIT# 01:06 → ER 01:09 → 4TH 02:35 → UNDOADMIN 02:35 → 4TH 03:11 → INTOOBSV 03:30 → 4TH 03:30 → UNDODISIN 08-21 13:23
PROVIDERS: ADMIT Internal Medicine; ATTEND Internal Medicine
DX: L03.113 Cellulitis of right upper limb (principal); J45.909 Unspecified asthma, uncomplicated; F17.210 Nicotine dependence, cigarettes, uncomplicated
CPT/HCPCS: 36415; 80053; 80202; 85025; 85652; 86141; 87040; 94640; 94664; 96365; 96375; G0378